=== PATIENT | male | born 1970 | race African-American/Black ===

== ENCOUNTER 2017-04-18 11:57 | Emergency (ER) | payer OTHER ==
[2017-04-18 12:35] VITALS: BP 142/93; PULSE 78; TEMP 99; BMI 25.7
[2017-04-18] MEDS ORDERED: ALBUTEROL SO4 0.083% IH SOL 2.5 MG/3 ML VIAL.NEB. NEB ONE ×2 (13:23→13:27)
--- NOTE | 2017-04-18 13:32 | PDOC ---
History of Present Illness - General Chief Complaint: Cold Symptoms Stated Complaint: COUGH, HEADACHES Time Seen by Provider: 04/18/17 13:18 History Source: Patient Exam Limitations: No Limitations - History of Present Illness Initial Comments: 04/18/17 13:25 47 yr male with cough for 2 days. Pt is a smoker, history of IDDM. no fever no vomiting or abd pain. Timing/Duration: reports: yesterday Severity: reports: mild Past History - Past Medical History Allergies/Adverse Reactions: Allergies Allergy/AdvReac Type Severity Reaction Status Date / Time codeine [Codeine] Allergy Verified 04/18/17 13:22 Home Medications: Ambulatory Orders Aspirin [ASA] 81 mg PO DAILY 10/16/11 Enalapril Maleate 10 mg PO DAILY 10/16/11 Insulin Glargine,Hum.rec.anlog [Lantus] 30 unit SQ HS 10/16/11 Insulin Lispro [Humalog] 100 unit SQ ACHS 10/16/11 Docusate Sodium [Colace -] 100 mg PO DAILY #30 capsule 10/09/14 Albuterol Sulfate Inhaler - [Ventolin HFA Inhaler -] 1 - 2 inh PO Q4H PRN #1 inhaler 04/18/17 Benzonatate [Tessalon Pearls -] 200 mg PO TID PRN #30 cap 04/18/17 Diabetes: Yes HTN: Yes - Suicide/Smoking/Psychosocial Hx Smoking Status: No Smoking History: Current every day smoker Number of Cigarettes Smoked Daily: 7 Information on smoking cessation initiated: No 'Breaking Loose' booklet given: 10/09/14 Hx Alcohol Use: No Drug/Substance Use Hx: No Substance Use Type: Marijuana Respiratory Specific PMHX - Complaint Specific PMHX Angina: No Bronchitis: No Pneumonia: No Review of Systems - Review of Systems Able to Perform ROS?: Yes Is the patient limited [place]ian proficient: No Constitutional: No: Symptoms Reported HEENTM: No: Symptoms Reported Respiratory: Yes: Cough Cardiac (ROS): No: Symptoms Reported ABD/GI: No: Symptoms Reported Musculoskeletal: Yes: Symptoms Reported Integumentary: No: Symptoms Reported *Physical Exam - Vital Signs Last Vital Signs Temp Pulse Resp BP Pulse Ox 99 F 78 18 142/93 100 04/18/17 12:32 04/18/17 12:32 04/18/17 12:32 04/18/17 12:32 04/18/17 12:32 - Physical Exam General Appearance: Yes: Nourished, Appropriately Dressed HEENT: positive: EOMI, JEFF, Normal ENT Inspection, TMs Normal, Pharynx Normal, Pharyngeal Erythema, Tonsillar Erythema Neck: positive: Supple, Lymphadenopathy (L). negative: Lymphadenopathy (R) Respiratory/Chest: positive: Lungs Clear, Normal Breath Sounds. negative: Chest Tender, Paradoxal Breathing, Crackles, Rales, Rhonchi, Stridor, Wheezing Cardiovascular: positive: Regular Rhythm, Regular Rate Gastrointestinal/Abdominal: positive: Normal Bowel Sounds, Soft Lymphatic: negative: Adenopathy Musculoskeletal: positive: Normal Inspection Extremity: positive: Normal Inspection, Normal Range of Motion Integumentary: positive: Normal Color, Dry, Warm Neurologic: positive: Fully Oriented, Alert, Normal Mood/Affect, Normal Response , Motor Strength 5/5 Medical Decision Making - Medical Decision Making 04/18/17 13:47 cc: cough sneezing for one day no fever no chills no abd pain no diarrhea will check rapid strep will give albuterol and re-evaluate 04/18/17 13:48 *DC/Admit/Observation/Transfer Diagnosis at time of Disposition: Viral bronchitis - Discharge Dispostion Disposition: HOME Condition at time of disposition: Good - Prescriptions Prescriptions: Albuterol Sulfate Inhaler - [Ventolin HFA Inhaler -] 1 - 2 inh PO Q4H PRN #1 inhaler PRN Reason: Wheezing Benzonatate [Tessalon Pearls -] 200 mg PO TID PRN #30 cap PRN Reason: Cough - Referrals Referrals: Laura Padron [Primary Care Provider] - - Patient Instructions Additional Instructions: drink pleanty of fluids stay hydrated take the medications as prescribed please follow with your doctor on Friday for follow up avoid crowds, avoid parties and young babies wash hands frequently increase vitamin C and zinc in your diet to boost immune system - Post Discharge Activity
== END 2017-04-18 14:07 | disposition home or self-care (01) ==
LOC: JERFT 11:57
PROC: 3E0F7GC Introduction of Other Therapeutic Substance into Respiratory Tract, Via Natural or Artificial Opening (ICD-10-PCS; principal; 2017-04-18)
DX: J20.8 Acute bronchitis due to other specified organisms (principal); E11.9 Type 2 diabetes mellitus without complications; I10 Essential (primary) hypertension; F17.210 Nicotine dependence, cigarettes, uncomplicated; Z79.4 Long term (current) use of insulin; Z79.82 Long term (current) use of aspirin
CPT/HCPCS: 87070; 87077; 87430; 94640; 99281-25

== ENCOUNTER 2018-06-10 16:58 | Emergency (ER) | payer OTHER ==
[2018-06-10 17:13] VITALS: BP 164/97; PULSE 82; TEMP 98; BMI 25.7
[2018-06-10 18:35] LABS: EOS % 1.3 % (0-4.5); HEMATOCRIT 41.7 % (35.4-49); HEMOGLOBIN 14.8 GM/dL (11.7-16.9); LYMPH % 23.5 % (8-40); MCH 34.1 pg (25.7-33.7); MCHC 35.5 g/dl (32.0-35.9); MEAN CELL VOLUME 96.1 fl (80-96); MEAN PLT VOLUME 7.2 fl (7.5-11.1); MONO % 4.3 % (3.8-10.2); NEUT % 69.9 % (42.8-82.8); PLATELET COUNT 345 K/MM3 (134-434); RBC 4.34 M/mm3 (4.00-5.60); RDW 13.3 % (11.9-15.9); WHITE BLOOD COUNT 8.8 K/mm3 (4.0-10.0)
[2018-06-10 19:05] LABS: ALBUMIN 3.9 g/dl (3.4-5.0); ALK PHOS 66 U/L (45-117); ANION GAP 6 MMOL/L (8-16); BILIRUBIN,TOTAL 0.6 mg/dL (0.2-1); BLOOD UREA NITROGEN 8 mg/dL (7-18); CALCIUM 8.7 mg/dL (8.5-10.1); CHLORIDE 103 mmol/L (98-107); CO2 28 mmol/L (21-32); CREATININE 1.2 mg/dL (0.55-1.3); GLUCOSE,RANDOM 144 mg/dL (74-106); POTASSIUM 4.1 mmol/L (3.5-5.1); SGOT/AST 21 U/L (15-37); SGPT/ALT 20 U/L (13-61); SODIUM 137 mmol/L (136-145); TOT PROT 7.2 g/dl (6.4-8.2)
--- NOTE | 2018-06-10 19:46 | PDOC ---
Attending Attestation - HPI HPI: 06/10/18 20:08 The patient is a 48 YOM with PMH of DM who presents complaining of feeling tired over the past few days and having low blood glucose today. Patient has not seen his PCP in the past year. Of note, patient's mother has recently and has been more stressed. He has no other complaints today. The patient denies chest pain, shortness of breath, headache and dizziness. Denies fever, chills, nausea, vomit, diarrhea and constipation. Denies dysuria, frequency, urgency and hematuria. Allergies: NKA Past surgical history: None reported. Social history: No reported alcohol, drug or cigarette use. - Physicial Exam PE: 06/10/18 20:12 Agrees with resident's exam. <Melissa Winston - Last Filed: 06/10/18 20:07> - Resident Resident Name: Aria Cabrera - ED Attending Attestation I have performed the following: I have examined & evaluated the patient, The case was reviewed & discussed with the resident, I agree w/resident's findings & plan - Medical Decision Making 06/10/18 20:13 48-year-old male with complaints of generalized malaise, he has been under stress due to the loss of family member Labs are unremarkable EKG, plan for discharge home with outpatient follow-up <Josy Hua - Last Filed: 06/10/18 20:13>
--- NOTE | 2018-06-10 20:20 | PDOC ---
History of Present Illness - General Chief Complaint: Blood Pressure Problem Stated Complaint: LOW BLOOD SUGAR Time Seen by Provider: 06/10/18 19:36 History Source: Patient Exam Limitations: No Limitations - History of Present Illness Initial Comments: 06/10/18 21:42 Pt is a 48yo M with PMH of IDDM presenting to ED for fatigue and low blood sugar. Pt states he has been taking two types of insulin, one at night and one in morning 'for a while'. He states that he frequently has low blood sugars as detected by his glucometer. He has not seen his PMD in a year or so and has not had recent evaluation of the diabetes. Other than fatigue pt does not have any complaints. Denies chest pain, sycnope, sob, abdominal pain, n/v/d, headache, urinary frequency, fevers, chills, weight loss PMD: none PMH: see hpi PSH: none Meds: insulin Allergies: codeine 06/10/18 21:45 Past History - Past Medical History Allergies/Adverse Reactions: Allergies Allergy/AdvReac Type Severity Reaction Status Date / Time codeine [Codeine] Allergy Verified 06/10/18 17:13 Home Medications: Ambulatory Orders Aspirin [ASA] 81 mg PO DAILY 10/16/11 Enalapril Maleate 10 mg PO DAILY 10/16/11 Insulin Glargine,Hum.rec.anlog [Lantus] 30 unit SQ HS 10/16/11 Insulin Lispro [Humalog] 100 unit SQ ACHS 10/16/11 Docusate Sodium [Colace -] 100 mg PO DAILY #30 capsule 10/09/14 Albuterol Sulfate Inhaler - [Ventolin HFA Inhaler -] 1 - 2 inh PO Q4H PRN #1 inhaler 04/18/17 Benzonatate [Tessalon Pearls -] 200 mg PO TID PRN #30 cap 04/18/17 COPD: No Diabetes: Yes HTN: Yes (not on meds) - Suicide/Smoking/Psychosocial Hx Smoking Status: No Smoking History: Current every day smoker Number of Cigarettes Smoked Daily: 10 Information on smoking cessation initiated: No 'Breaking Loose' booklet given: 10/09/14 Hx Alcohol Use: No Drug/Substance Use Hx: No Substance Use Type: Marijuana Review of Systems - Review of Systems Constitutional: Yes: Malaise, Weight Stable. No: Chills, Fever HEENTM: No: Eye Pain, Blurred Vision, Double Vision Respiratory: No: Cough, Shortness of Breath, Hemoptysis Cardiac (ROS): No: Chest Pain, Lightheadedness, Palpitations, Syncope ABD/GI: No: Constipated, Diarrhea, Nausea, Poor Appetite, Vomiting : No: Burning, Dysuria Musculoskeletal: No: Back Pain, Joint Pain, Muscle Pain Integumentary: No: Symptoms Reported Neurological: No: Headache, Numbness, Tingling, Tremors, Weakness, Ataxia, Dizziness *Physical Exam - Vital Signs Last Vital Signs Temp Pulse Resp BP Pulse Ox 98 F 82 18 164/97 98 06/10/18 17:10 06/10/18 17:18 06/10/18 17:10 06/10/18 17:10 06/10/18 17:18 - Physical Exam General Appearance: Yes: Nourished, Appropriately Dressed. No: Apparent Distress HEENT: positive: EOMI, JEFF, Normal ENT Inspection Neck: positive: Trachea midline, Supple. negative: Lymphadenopathy (R), Lymphadenopathy (L) Respiratory/Chest: positive: Lungs Clear, Normal Breath Sounds. negative: Rhonchi, Stridor, Wheezing Cardiovascular: positive: Regular Rhythm, Regular Rate, S1, S2. negative: Edema , JVD, Murmur Vascular Pulses: Carotid (R): 2+, Carotid (L): 2+, Dorsalis-Pedis (R): 2+, Doralis-Pedis (L): 2+ Gastrointestinal/Abdominal: positive: Normal Bowel Sounds, Soft. negative: Tender Musculoskeletal: negative: CVA Tenderness Extremity: positive: Normal Capillary Refill. 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, Fully Oriented, Alert, Normal Mood/ Affect, Normal Response, Motor Strength 5/5 Moderate Sedation - Procedure Monitoring Vital Signs: Procedure Monitoring Vital Signs Temperature 98 F 06/10/18 17:10 Pulse Rate 82 06/10/18 17:18 Respiratory Rate 18 06/10/18 17:10 Blood Pressure 164/97 06/10/18 17:10 O2 Sat by Pulse Oximetry (%) 98 06/10/18 17:18 ED Treatment Course - LABORATORY CBC & Chemistry Diagram: 06/10/18 18:25 06/10/18 18:25 - ADDITIONAL ORDERS Additional order review: Laboratory Results 06/10/18 06/10/18 18:25 18:13 Sodium 137 Potassium 4.1 Chloride 103 Carbon Dioxide 28 Anion Gap 6 L BUN 8 Creatinine 1.2 Creat Clearance w eGFR 64.62 POC Glucometer 150 Random Glucose 144 H Calcium 8.7 Total Bilirubin 0.6 AST 21 ALT 20 Alkaline Phosphatase 66 Total Protein 7.2 Albumin 3.9 06/10/18 06/10/18 18:25 18:13 RBC 4.34 MCV 96.1 H MCHC 35.5 RDW 13.3 MPV 7.2 L Neutrophils % 69.9 Lymphocytes % 23.5 Monocytes % 4.3 Eosinophils % 1.3 Basophils % 1.0 POC Glucometer 150 Medical Decision Making - Medical Decision Making 06/10/18 21:47 Pt is a 48yo M with PMH of IDDM presenting to ED for fatigue and low blood sugar. Pt states he has been taking two types of insulin, one at night and one in morning 'for a while'. He states that he frequently has low blood sugars as detected by his glucometer. He has not seen his PMD in a year or so and has not had recent evaluation of the diabetes. Other than fatigue pt does not have any complaints. Denies chest pain, sycnope, sob, abdominal pain, n/v/d, headache, urinary frequency, fevers, chills, weight loss Vitals: wnl PE: normal labs ordered by [facility]. gluc 144. electrolytes wnl. added ekg: nsr. t wave flattening in I, II, v5, v6. inverted in III. No chest pain. no priors to compare to added trop and tsh trop and tsh normal. Pt active in ed, talking to family and ambulatory. will dc. given referrals to pmd and cardiology *DC/Admit/Observation/Transfer Diagnosis at time of Disposition: Malaise - Discharge Dispostion Disposition: HOME Condition at time of disposition: Improved - Referrals Referrals: Benjamin Carlson MD [Staff Physician] - - Patient Instructions Printed Discharge Instructions: Blood Glucose Additional Instructions: You were seen in the emergency room for feeling tired and having low blood glucose. The blood tests were normal. I suggest that you make an appointment with a primary care doctor so that the diabetes can be better managed. You can see your own or you can make an appointment with one of our PMD's. If your blood sugar is low, drink some juice or have a candy. I also recommend that you see a filling carrier. You can see Dr. Carlson Come back to the emergency room if you pass out, start vomiting, have fevers, have chest pain, or if any new concerning symptom develops. Thank you - Post Discharge Activity
--- NOTE | 2018-06-11 11:00 | EKG ---
Test Reason : Blood Pressure : / mmHG Vent. Rate : 073 BPM Atrial Rate : 073 BPM P-R Int : 148 ms QRS Dur : 080 ms QT Int : 384 ms P-R-T Axes : 064 -01 017 degrees QTc Int : 423 ms NORMAL SINUS RHYTHM MINIMAL VOLTAGE CRITERIA FOR LVH, MAY BE NORMAL VARIANT NONSPECIFIC T WAVE ABNORMALITY ABNORMAL ECG WHEN COMPARED WITH ECG OF 07-JUN-1997 00:56, NONSPECIFIC T WAVE ABNORMALITY NOW EVIDENT IN INFERIOR LEADS NONSPECIFIC T WAVE ABNORMALITY, WORSE IN LATERAL LEADS Confirmed by GEOVANNI ROBERT MD ([id number]) on 06/11/2018 10:59:42 AM Referred By: Confirmed By:GEOVANNI ROBERT MD
== END 2018-06-10 21:56 | disposition home or self-care (01) ==
LOC: JER 16:58
DX: R53.81 Other malaise (principal); E11.9 Type 2 diabetes mellitus without complications; Z79.4 Long term (current) use of insulin
CPT/HCPCS: 36415; 80053; 82962; 84443; 84484; 85025; 93005; 93010; 99282-25

== ENCOUNTER 2018-06-16 16:01 | Emergency (ER) | payer OTHER ==
[2018-06-16 16:53] VITALS: BMI 27.4
[2018-06-16 18:09] LABS: BASO % 0.4 % (0-2.0); EOS % 1.1 % (0-4.5); HEMATOCRIT 41.9 % (35.4-49); HEMOGLOBIN 14.6 GM/dL (11.7-16.9); LYMPH % 20.4 % (8-40); MCH 33.9 pg (25.7-33.7); MCHC 34.9 g/dl (32.0-35.9); MEAN CELL VOLUME 97.1 fl (80-96); MEAN PLT VOLUME 7.4 fl (7.5-11.1); MONO % 3.5 % (3.8-10.2); NEUT % 74.6 % (42.8-82.8); PLATELET COUNT 295 K/MM3 (134-434); RBC 4.31 M/mm3 (4.00-5.60); RDW 13.4 % (11.9-15.9); WHITE BLOOD COUNT 8.5 K/mm3 (4.0-10.0)
--- NOTE | 2018-06-16 18:13 | PDOC ---
History of Present Illness - General Chief Complaint: Blood Sugar Problem Stated Complaint: LOW BLOOD SUGAR Time Seen by Provider: 06/16/18 17:03 History Source: Patient Exam Limitations: No Limitations - History of Present Illness Initial Comments: 06/16/18 17:51 Pt is a 48yo M with PMH of IDDM BIBA for hypoglycemia. Pt says he woke up this morning and felt his sugar was low. He checked it and it was 50 or 70. He ate breakfast then said he started to feel incoherent and everything was a blur. The next thing he knew was that EMS was telling him to come to the hospital. BG was 34. Per family member, pt had similar episode last week. However this time, pt started screaming so family called EMS. Pt was given glucose tablet and D10 in the field. At this time, pt does not have any complaints. Denies falls, chest pain, sob, abdominal pain, n/v/d, urinary symptoms, headache, numbness/ tingling. PMD: PMH: see hpi PSH: none Meds: insulin Allergies: codeine Social: denies Past History - Past Medical History Allergies/Adverse Reactions: Allergies Allergy/AdvReac Type Severity Reaction Status Date / Time codeine [Codeine] Allergy Verified 06/10/18 17:13 Home Medications: Ambulatory Orders Aspirin [ASA] 81 mg PO DAILY 10/16/11 Enalapril Maleate 10 mg PO DAILY 10/16/11 Insulin Glargine,Hum.rec.anlog [Lantus] 30 unit SQ HS 10/16/11 Insulin Lispro [Humalog] 100 unit SQ ACHS 10/16/11 Docusate Sodium [Colace -] 100 mg PO DAILY #30 capsule 10/09/14 Albuterol Sulfate Inhaler - [Ventolin HFA Inhaler -] 1 - 2 inh PO Q4H PRN #1 inhaler 04/18/17 Benzonatate [Tessalon Pearls -] 200 mg PO TID PRN #30 cap 04/18/17 COPD: No Diabetes: Yes HTN: Yes (not on meds) - Suicide/Smoking/Psychosocial Hx Smoking Status: No Smoking History: Never smoked Have you smoked in the past 12 months: No Number of Cigarettes Smoked Daily: 10 Information on smoking cessation initiated: No 'Breaking Loose' booklet given: 10/09/14 Hx Alcohol Use: No Drug/Substance Use Hx: No Substance Use Type: Marijuana Review of Systems - Review of Systems Constitutional: No: Symptoms Reported HEENTM: No: Symptoms Reported Respiratory: No: Symptoms reported Cardiac (ROS): No: Symptoms Reported ABD/GI: No: Symptoms Reported : No: Symptoms Reported Musculoskeletal: No: Symptoms Reported Integumentary: No: Symptoms Reported Neurological: No: Symptoms reported *Physical Exam - Vital Signs Last Vital Signs Temp Pulse Resp BP Pulse Ox 98.9 F 78 18 156/65 100 06/16/18 16:18 06/16/18 16:18 06/16/18 16:18 06/16/18 16:18 06/16/18 16:18 - Physical Exam General Appearance: Yes: Nourished, Appropriately Dressed. No: Apparent Distress HEENT: positive: EOMI, JEFF, Normal ENT Inspection Neck: positive: Trachea midline, Supple. negative: Lymphadenopathy (R), Lymphadenopathy (L) Respiratory/Chest: positive: Lungs Clear, Normal Breath Sounds Cardiovascular: positive: Regular Rhythm, Regular Rate Vascular Pulses: Carotid (R): 2+, Carotid (L): 2+, Dorsalis-Pedis (R): 2+, Doralis-Pedis (L): 2+ Gastrointestinal/Abdominal: positive: Normal Bowel Sounds, Soft. negative: Tender Musculoskeletal: negative: CVA Tenderness Extremity: positive: Normal Capillary Refill. 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 Pt says he woke up this morning and felt his sugar was low. He checked it and it was 50 or 70. He ate breakfast then said he started to feel incoherent and everything was a blur. The next thing he knew was that EMS was telling him to come to the hospital. BG was 34. Per family member, pt had similar episode last week. However this time, pt started screaming so family called EMS. Pt was given glucose tablet and D10 in the field. At this time, pt does not have any complaints. Denies falls, chest pain, sob, abdominal pain, n/v/d, urinary symptoms, headache, numbness/ tingling. Vitals: wnl PE: benign BGM 140. basic labs drawn. Pt most likely had hypoglycemic episode which is resolved now. labs wnl. pt eating here in ed. repeat fsg 180s. will dc home. pt states he can make appt tomorrow with pmd. given return precautions. 06/17/18 00:10 *DC/Admit/Observation/Transfer Diagnosis at time of Disposition: Hypoglycemia - Discharge Dispostion Disposition: HOME Condition at time of disposition: Improved Decision to Admit order: No - Referrals - Patient Instructions Printed Discharge Instructions: DI for Hypoglycemia Additional Instructions: You were seen in the emergency room today for hypoglycemia. It is very important that you make an appointment with your doctor so you get on the proper regimen to control your blood sugar. Please make an appointment! If you feel your sugar is low, eat something with sugar like a candy, soda or a glucose tablet (can be found in any pharmacy). Come back to the emergency room if sugars are low, you pass out, you have chest pain, you start vomiting, your blood sugars are really high or if any new concerning symptom develops. Thank you - Post Discharge Activity
--- NOTE | 2018-06-16 18:16 | PDOC ---
Attending Attestation - Resident Resident Name: Aria Cabrera - ED Attending Attestation I have performed the following: I have examined & evaluated the patient, The case was reviewed & discussed with the resident, I agree w/resident's findings & plan, Exceptions are as noted - HPI HPI: 06/16/18 18:04 The patient is a 48 year old M, with a significant past medical history of IDDM (on 30u lantus at night and sliding scale after meals), who presents to the emergency department with hypoglycemia. states that she checked his sugar this morning before breakfast and found it to be in the 40s. Pt was awake, alert , and mentating normally at this time. Pt ate an egg sandwich and skipped his sliding scale insulin, but he subsequently became confused and agitated. checked his sugar again and found it to be 32. She gave him glucose tablets and called EMS. En route, EMS gave him glucose paste. In ED, pt is awake and alert, oriented x3. Pt denies any complaints but has no recollection of what happened prior to his arrival to ED. He states his last insulin dose was last night, the usual 30u long acting insulin. Denies any changes in his regimen. Does not believe he took more than usual. The patient denies chest pain, shortness of breath, headache and dizziness. The patient denies fever, chills, nausea, vomit, diarrhea and constipation. The patient denies dysuria, frequency, urgency and hematuria. Allergies: NKDA - Physicial Exam PE: 06/16/18 18:16 "GENERAL: Awake, alert, and fully oriented, in no acute distress. HEAD: No signs of trauma EYES: PERRLA, EOMI, sclera anicteric, conjunctiva clear ENT: Auricles normal inspection, hearing grossly normal, nares patent, oropharynx clear without exudates. Moist mucosa NECK: Nontender, no stepoffs, Normal ROM, supple, no lymphadenopathy, JVD, or masses LUNGS: Breath sounds equal, clear to auscultation bilaterally. No wheezes, and no crackles HEART: Regular rate and rhythm, normal S1 and S2, no murmurs, rubs or gallops ABDOMEN: Soft, nontender, normoactive bowel sounds. No guarding, no rebound. No masses EXTREMITIES: Normal range of motion, no edema. No clubbing or cyanosis. No cords, erythema, or tenderness NEUROLOGICAL: Cranial nerves II through XII intact. 5/5 strength and sensation in all extremities, Normal speech, normal gait, normal cerebellar function SKIN: Warm, Dry, normal turgor, no rashes or lesions noted. - Medical Decision Making 06/16/18 18:16 48 M with episode of hypoglycemia, now resolved after oral glucose. This is pt' s 2nd episode in 1 week, likely 2/2 over-dosing insulin. Will check for electrolyte derangement. - Labs - Fingersticks 06/16/18 18:35 Labs wnl Will check one more fingerstick 06/16/18 18:54 Fingerstick 180s Pt is well appearing, with normal vitals. Clinically stable for DC at this time. I discussed the physical exam findings, ancillary test results and final diagnoses with the patient. I answered all of the patient's questions. The patient was satisfied with the care received and felt comfortable with the discharge plan and treatment plan. The patient agrees to follow up with the primary care physician within 24-72 hours.
[2018-06-16 18:34] LABS: ALBUMIN 3.8 g/dl (3.4-5.0); ALK PHOS 59 U/L (45-117); ANION GAP 7 MMOL/L (8-16); BILIRUBIN,TOTAL 0.6 mg/dL (0.2-1); BLOOD UREA NITROGEN 9 mg/dL (7-18); CALCIUM 8.6 mg/dL (8.5-10.1); CHLORIDE 104 mmol/L (98-107); CO2 27 mmol/L (21-32); GLUCOSE,RANDOM 140 mg/dL (74-106); POTASSIUM 3.8 mmol/L (3.5-5.1); SGOT/AST 17 U/L (15-37); SGPT/ALT 17 U/L (13-61); SODIUM 138 mmol/L (136-145); TOT PROT 6.7 g/dl (6.4-8.2)
[2018-06-16 19:13] VITALS: BP 131/65; PULSE 67; TEMP 98
== END 2018-06-16 19:13 | disposition home or self-care (01) ==
LOC: JER 16:01
DX: E11.649 Type 2 diabetes mellitus with hypoglycemia without coma (principal); Z79.4 Long term (current) use of insulin
CPT/HCPCS: 36415; 80053; 82962; 85025; 99282-25

== ENCOUNTER 2019-10-05 10:33 | Day surgery (SDC) | payer OTHER ==
[2019-10-05] MEDS ORDERED: LIDOCAINE VISCOUS 2% ORAL/TOP 100 ML BOTTLE ONE (10:46)
[2019-10-05 11:12] VITALS: BMI 26.6
[2019-10-05] MEDS ORDERED: MIDAZOLAM HCL 2 MG/2 ML SINGLE DOSE VIAL ONE (11:21)
[2019-10-05] MEDS ORDERED: LIDOCAINE VISCOUS 2% ORAL/TOP 20 ML UNIT-DOSE CUP MM ONE (11:31)
[2019-10-05 11:54] VITALS: TEMP 97.8
--- NOTE | 2019-10-05 12:12 | ECHO ---
Name: VILLANUEVA, KIKO Exam:Transesophageal Echocardiogram Study Date: 10/05/2019 11:27 AM Age: 49 yrs Reason For Study: clot Height: 65 in Weight: 160 lb BSA: 1.8 m2 Procedure: A 2D transesophageal echocardiogram with Doppler and color flow Doppler was performed. Informed conse nt for Transesophageal Echocardiogram, and use of a contrast agent as needed, was obtained prior to the proc edure. The patient was brought to the endoscopy suite in a fasting state. An intravenous line was placed. A topical anesthetic agent was used for oropharangeal anesthesia. A bite block was inserted. IV concious sedati on was administered using propafol. A multifrequency, multiplane transesopheageal echocardiographic endoscop e was inserted and manipulated in the standard fashion to achieve multiplane views. The usual views were ob tained; basal, mid-esophageal, transgastric and aortic views. The patient's vital signs, including blood pres sure, heart rate, pulse oximetry and cardiac rhythm were monitored throughout the procedure and remained st able. The patient tolerated the procedure well without evidence of orophangeal or esophageal trauma. There were no complications. The patient was in normal sinus rhythm during the exam. Left Ventricle The left ventricle is normal in size. Left ventricular systolic function is normal. No regional wall motion abnormalities noted. Atria The left atrial size is normal. No thrombus is detected in the left atrial appendage. No left atrial mass or thrombus visualized. The interatrial septum is intact with no evidence for an atrial septal defect. I njection of contrast documented no interatrial shunt. Mitral Valve The mitral valve is normal in structure and function. There is mild mitral regurgitation. Tricuspid Valve The tricuspid valve is normal in structure and function. There is mild tricuspid regurgitation. Aortic Valve The aortic valve is normal in structure and function. The aortic valve opens well. The aortic valve i s trileaflet. No aortic regurgitation is present. Pulmonic Valve The pulmonic valve is not well seen, but is grossly normal. There is no pulmonic valvular regurgitati on. Great Vessels No evidence of atherosclerotic plaque in thoracic aorta or aortic arch. Normal aortic arch, descendin g and ascending aorta. The aortic root is normal size. Pericardium/Pluera There is no pericardial effusion. Interpretation Summary The left ventricle is normal in size. Left ventricular systolic function is normal. No regional wall motion abnormalities noted. The left atrial size is normal. No thrombus is detected in the left atrial appendage. No left atrial mass or thrombus visualized. The interatrial septum is intact with no evidence for an atrial septal defect. Injection of contrast documented no interatrial shunt. There is mild mitral regurgitation. There is mild tricuspid regurgitation. No evidence of atherosclerotic plaque in thoracic aorta or aortic arch There is no pericardial effusion. No evidence of vegetations Edilberto Rene MD 10/05/2019 12:12 PM
[2019-10-05 13:32] VITALS: BP 146/95; PULSE 69
== END 2019-10-05 13:30 | disposition home or self-care (01) ==
LOC: JASU-SURG 10:33
PROVIDERS: ATTEND Internal Medicine Cardiovascular Disease
PROC: B246ZZ4 Ultrasonography of Right and Left Heart, Transesophageal (ICD-10-PCS; principal; 2019-10-05 11:00)
DX: I63.9 Cerebral infarction, unspecified (principal); E11.9 Type 2 diabetes mellitus without complications; Z79.4 Long term (current) use of insulin
CPT/HCPCS: 93312; 93325